=== PATIENT | female | born 1955 | race Caucasian/White ===

== ENCOUNTER 2017-08-04 13:08 | Emergency (ER) | payer BC ==
[2017-08-04 13:33] VITALS: BP 127/64
--- NOTE | 2017-08-04 13:34 | UC ---
Respiratory Complaint HPI - HPI Summary HPI Summary: 61 year female with history of smoking now on Chantix. Now with Cough w/ white sputum & runny nose x1 month. Pt was seen by PCP & given an albuterol neb. Pt has had increased cough, dyspnea on exertion, & intermittent heavy chest over the past couple of days, especially at night. Has been doing albuterol every 2 hours for relief of sx. Also c/o tingling in last 3 fingers left hand for the past month only in the fingers not byyond that . per patient on 07/06 she went to [facility] and had work up for similar Sx and had normal EKG and chest xray. At this time her Sx persisting and woke up last night coughing and the neb does help. She took prednisone with minimal help and doxy did help but since she stopped her Sx returned [ End ] - History of Current Complaint Stated Complaint: COUGH RUNNY NOSE CHEST HEAVY Time Seen by Provider: 08/04/17 13:33 Hx Obtained From: Patient ?: No Onset/Duration: Gradual Onset Timing: Constant Severity Initially: Moderate Severity Currently: Moderate Character: Cough: Productive Aggravating Factors: Exertion Alleviating Factors: Bronchodilator Associated Signs And Symptoms: Positive: Dyspnea, Wheezing, Nasal Congestion - Risk Factors Pulmonary Embolism Risk Factors: Negative Cardiac Risk Factors: Smoking - Allergies/Home Medications Allergies/Adverse Reactions: Allergies Allergy/AdvReac Type Severity Reaction Status Date / Time No Known Allergies Allergy Verified 08/04/17 13:25 Home Medications: Home Medications Albuterol 2.5MG/3ML (0.083%)* [Ventolin 2.5 MG/3 ML NEB.KARIN*] 2.5 mg INH Q2H PRN 08/04/17 [History Confirmed 08/04/17] Varenicline (NF) [Chantix 1 MG TAB (NF)] 1 mg PO BID 08/04/17 [History Confirmed 08/04/17] PMH/Surg Hx/FS Hx/Imm Hx Previously Healthy: Yes - Surgical History Surgical History: Yes Surgery Procedure, Year, and Place: tubal , both eyes - Family History Known Family History: Positive: None - Social History Lives: With Family Alcohol Use: Rare Substance Use Type: None Type: Cigarettes Amount Used/How Often: 1/2 -1 ppd Length of Time of Smoking/Using Tobacco: 42 yrs Have You Smoked in the Last Year: Yes Cessation Counseling: Patient Advised to Stop Review of Systems Constitutional: Fatigue ENT: Nasal Discharge Respiratory: Shortness Of Breath, Cough All Other Systems Reviewed And Are Negative: Yes Physical Exam Triage Information Reviewed: Yes Appearance: Well-Appearing, No Pain Distress, Well-Nourished Vital Signs Reviewed: Yes Eye Exam: Normal ENT Exam: Normal Dental Exam: Normal Neck exam: Normal Neck: Positive: 1 Respiratory Exam: Normal Cardiovascular Exam: Normal Musculoskeletal Exam: Normal Neurological Exam: Normal Psychological Exam: Normal Skin Exam: Normal Respiratory Course/Dx - Course Course Of Treatment: Has failed conservative treatment with nebs -- with history of > 25 pack years treat as COPD exacerbation with steroids and leva with tessalon and f/u with PCP and consider Pulm referral if this persist as she will need PFT's Since she worsened since stopping the doxy treat at this time with levaquin. xray and EKG show NAD - Differential Dx/Diagnosis Differential Diagnosis/HQI/PQRI: Bronchitis, Laryngitis, Lower Resp Infection, Sinusitis Provider Diagnoses: COPD exacerbation / bronchitis Discharge - Discharge Plan Condition: Good Disposition: HOME Prescriptions: Benzonatate [TESSALON 200 MG CAP] 200 mg PO TID PRN #20 cap PRN Reason: Cough Levofloxacin TAB* [Levaquin TAB*] 500 mg PO DAILY #7 tab Methylprednisolone [Medrol Dosepak 4 MG*] 0 mg PO .SEE CLARK INSTRUCTION #1 tab Patient Education Materials: Acute Bronchitis (ED) Referrals: DERREK Thompson [Primary Care Provider] - 3 Days Additional Instructions: GOOD LUCK QUITTING SMOKING
--- NOTE | 2017-08-04 15:32 | RAD ---
INDICATION: Cough x1 month with worsening dyspnea COMPARISON: None TECHNIQUE: PA and lateral views of the chest were obtained. FINDINGS: The heart and mediastinum are normal in size and contour. The lungs are grossly clear. There is no evidence of large pleural effusion. Visualized bones are normal for the patient's age. There is no radiographic evidence of free air beneath the diaphragm IMPRESSION: No radiographic evidence of acute cardiopulmonary disease.
== END 2017-08-04 14:19 | disposition home or self-care (01) ==
LOC: UCCORT 13:08
DX: J44.1 Chronic obstructive pulmonary disease with (acute) exacerbation (principal); R20.2 Paresthesia of skin; F17.210 Nicotine dependence, cigarettes, uncomplicated
CPT/HCPCS: 71020; 93005; 99212; G0463